=== PATIENT | male | born 1995 | race African-American/Black ===

== ENCOUNTER 2017-07-02 17:23 | Emergency (ER) | payer OTHER ==
[~2017-07-02] VITALS: Ht 182.9 cm; Wt 68.2 kg
[2017-07-02 17:24] VITALS: BP 111/66
[2017-07-02] MEDS ORDERED: traMADol 50 MG TAB PO ONE (18:00)
--- NOTE | 2017-07-02 18:43 | REP ---
Clinical: Trauma. Technique: AP, lateral, bilateral oblique views of the right ankle. Findings: Lateral soft tissue swelling consistent with inversion injury. No acute fracture or dislocation. Joint spaces and ankle mortise are intact. Impression: Lateral swelling. No acute fracture or dislocation. Signed by Renan Cedillo MD 07/02/2017 06:34 P
== END 2017-07-02 18:53 | disposition home or self-care (01) ==
LOC: M ED 17:23
DX: S93.411A Sprain of calcaneofibular ligament of right ankle, initial encounter (principal); X50.1XXA Overexertion from prolonged static or awkward postures, initial encounter; Y92.138 Other place on military base as the place of occurrence of the external cause; Y93.67 Activity, basketball; Y99.1 Military activity

== ENCOUNTER 2018-10-02 13:11 | Emergency (ER) | payer OTHER | END 2018-10-02 13:39 | disposition home or self-care (01) | LOC: M ED 13:11 | DX: J02.9 Acute pharyngitis, unspecified (principal) | CPT/HCPCS: 87880 ==